=== PATIENT | male | born 1940 | race Caucasian/White ===

== ENCOUNTER 2018-02-17 16:58 | Inpatient (IN) | payer MEDICARE, MEDICAID ==
[~2018-02-17] VITALS: Ht 205.7 cm; Wt 129.3 kg
[2018-02-18] VITALS: BP 140/76
[2018-02-18] MEDS ORDERED: Albuterol/Ipratropium 3ml neb HHN PRN (00:15)
[2018-02-18] MEDS: HYDROcodone/Acetamin 10/325 tab ORAL PRN ×4 (00:53→23:55)
[2018-02-18] MEDS ORDERED: LORazepam 0.5mg tab ORAL PRN (01:45)
[2018-02-18] MEDS: Solu-MEDROL 40mg Inj IVP SCH ×3 (02:24→21:32)
[2018-02-18 04:00] VITALS: BP 143/76
[2018-02-18] MEDS: MS Contin 15mg tab ORAL PRN ×3 (04:38→21:33)
[2018-02-18 07:16] LABS: ALANINE AMINOTRANSFERASE 17 U/L (12-78); ALBUMIN 3.4 G/DL (3.4-5.0); ALBUMIN/GLOBULIN RATIO 0.7 (1.0-2.7); ALKALINE PHOSPHATASE 123 U/L (46-116); ANION GAP 5 mmol/L (5-15); ASPARTATE AMINO TRANSFERASE 13 U/L (15-37); BILIRUBIN,TOTAL 0.3 MG/DL (0.2-1.0); BLOOD UREA NITROGEN 16 mg/dL (7-18); CALCIUM 9.5 MG/DL (8.5-10.1); CARBON DIOXIDE 30 MMOL/L (21-32); CHLORIDE 100 MMOL/L (98-107); CREATININE 0.9 MG/DL (0.55-1.30); SODIUM 135 MMOL/L (136-145)
[2018-02-18 07:17] LABS: BASOPHILS % (AUTO) 0.6 % (0.0-2.0); EOSINOPHILS % (AUTO) 0.4 % (0.0-3.0); HEMATOCRIT 49.1 % (42.0-52.0); HEMOGLOBIN 16.5 G/DL (14.2-18.0); LYMPHOCYTES % (AUTO) 15.8 % (20.0-45.0); MEAN CORPUSCULAR VOLUME 88 FL (80-99); MONOCYTES % (AUTO) 1.9 % (1.0-10.0); NEUTROPHILS % (AUTO) 81.3 % (45.0-75.0); PLATELET COUNT 364 K/UL (150-450); RED BLOOD COUNT 5.59 M/UL (4.70-6.10); RED CELL DISTRIBUTION WIDTH 14.9 % (11.6-14.8); WHITE BLOOD COUNT 8.9 K/UL (4.8-10.8)
[2018-02-18 07:39] LABS: INR 1.1 (0.9-1.1)
[2018-02-18 08:00] VITALS: BP 133/83
[2018-02-18] MEDS: Aspirin Baby 81mg ORAL SCH (08:47)
[2018-02-18] MEDS: NovoLOG Insulin Flexpen SUBQ SCH ×2 (09:00→21:37)
[2018-02-18] MEDS ORDERED: MS Contin 15mg tab ORAL PRN (09:00)
[2018-02-18 12:00] VITALS: BP 136/82
[2018-02-18] MEDS: Hydrocortisone 1% Cr 15gm TOPIC PRN (13:56)
[2018-02-18 16:00] VITALS: BP 142/85
[2018-02-18] MEDS ORDERED: Warfarin Sodium 10mg ORAL ONE (17:00)
[2018-02-18] MEDS ORDERED: Warfarin Sodium 2mg ORAL SCH (17:00)
[2018-02-18] MEDS: Vancomycin 1.5 GM/D5W 250ML IVPB SCH (17:23)
[2018-02-18] MEDS: Bactrim-DS 1 tab ORAL SCH (18:30)
--- NOTE | 2018-02-18 19:15 | History and Physical Report ---
DATE OF ADMISSION: 02/17/2018 HISTORY OF PRESENT ILLNESS: The patient is a 78-year-old white male who came to the emergency room following acute COPD, chronic respiratory insufficiency, intractable pain, and bilateral leg ulcer. The patient is currently awake, complaining of pain on both legs and . The patient used to be on OxyContin 90 mg three times a day, but has cut down the dose, changed to morphine. He has been taking high dose of morphine, but still complaining of pain mild to moderate, short of breath. He has no fever. No chills. No chest pain or palpitation. PAST MEDICAL HISTORY: Significant for peripheral vascular disease, COPD, obesity, neuropathy, and leg ulcer. ALLERGIES: NKA. MEDICATIONS: See the list. PHYSICAL EXAMINATION: GENERAL: This is an elderly white male, currently in bed, feels comfortable and feeling a lot better. VITAL SIGNS: Blood pressure is 160/ . SKIN: Good skin turgor. HEENT: NAD. CHEST: Bilateral scattered wheezing. CARDIOVASCULAR: Regular rhythm. No gallop. No murmur. ABDOMEN: Soft. Positive bowel sounds. EXTREMITIES: Nonhealing ulcer on both legs and peripheral vascular disease and some skin changes. GENITOURINARY: Deferred. NEUROLOGIC: Generalized weakness. ASSESSMENT: 1. Acute COPD. 2. Bilateral leg ulcer. 3. Chronic pain, which is progressively worse. 4. Peripheral vascular disease. 5. Generalized weakness. PLAN: 1. We will consider pain management and consider wound care. 2. Continue IV antibiotics. 3. Continue bronchodilator treatments. 4. Continue pain medications until pain management evaluation. Marlon Holland M.D. DR: Annetta JOB#: [id number] CC:
[2018-02-18 20:00] VITALS: BP 123/66
[2018-02-18] MEDS: Sennosides 8.6mg ORAL SCH (21:32)
[2018-02-19] VITALS (7 sets, daily range): BP systolic 116–144; BP diastolic 50–86
[2018-02-19] MEDS: Vancomycin 1.5 GM/D5W 250ML IVPB SCH ×2 (05:37→17:26)
[2018-02-19] MEDS: MS Contin 15mg tab ORAL PRN ×3 (06:23→22:33)
[2018-02-19] MEDS: HYDROcodone/Acetamin 10/325 tab ORAL PRN ×2 (08:31→17:25)
[2018-02-19] MEDS: Bactrim-DS 1 tab ORAL SCH (08:31)
[2018-02-19] MEDS: Solu-MEDROL 40mg Inj IVP SCH ×2 (08:31→21:01)
[2018-02-19] MEDS: Aspirin Baby 81mg ORAL SCH (08:31)
[2018-02-19] MEDS: NovoLOG Insulin Flexpen SUBQ SCH ×2 (08:32→21:00)
--- NOTE | 2018-02-19 11:34 | Consultation ---
History of Present Illness General Date patient seen: Feb 19, 2018 Present Illness Allergies: Coded Allergies: No Known Allergies (Unverified , 02/17/18) Patient History Healthcare decision maker N Resuscitation status Full Code Advanced Directive on File Physical Exam Last 24 Hour Vital Signs Date Time Temp Pulse Resp B/P (MAP) Pulse Ox O2 Delivery O2 Flow Rate FiO2 02/19/18 08:00 97.7 92 20 116/50 95 Room Air 97.7 02/19/18 06:23 97.7 02/19/18 04:00 97.7 88 20 120/68 95 Room Air 97.7 02/19/18 00:00 97.3 92 20 132/74 96 Room Air 97.3 02/18/18 20:00 97.8 81 20 123/66 94 Room Air 97.8 02/18/18 19:30 80 18 Room Air 21 02/18/18 16:00 98.5 93 20 142/85 93 Room Air 98.5 02/18/18 12:00 99.1 95 20 136/82 93 Room Air 99.1 Intake and Output 02/18/18 02/19/18 19:00 07:00 Intake Total 1125 ml 685 ml Output Total 1100 ml 2000 ml Balance 25 ml -1315 ml Intake Oral 1000 ml 560 ml IV Total 125 ml 125 ml Output Urine Total 2000 ml Stool Total 1100 ml Height (Feet): 6 Height (Inches): 9.00 Weight (Pounds): 285 Medications Current Medications Medications (Trade) Dose Ordered Sig/Eulogio Route PRN Reason Start Time Stop Time Status Last Admin Dose Admin Acetaminophen/ Hydrocodone Bitart ([place] 10/325) 1 tab EVERY 6 HOURS PRN ORAL For Pain 02/18/18 00:15 02/25/18 00:14 02/19/18 08:31 Albuterol/ Ipratropium (Albuterol/ Ipratropium) 3 ml EVERY 6 HOURS PRN HHN Shortness of Breath 02/18/18 00:15 02/23/18 00:14 Aspirin (ASA) 81 mg DAILY ORAL 02/18/18 09:00 03/20/18 08:59 02/19/18 08:31 Bisacodyl (Dulcolax) 10 mg DAILYPRN PRN RECTAL Constipation 02/18/18 00:15 03/20/18 00:14 Dextrose (Dextrose 50%) 25 ml STAT PRN IV Hypoglycemia 02/18/18 01:45 03/20/18 01:44 Dextrose (Dextrose 50%) 50 ml STAT PRN IV Hypoglycemia 02/18/18 01:45 03/20/18 01:44 Hydrochlorothiazide (Hydrodiuril) 25 mg DAILY ORAL 02/18/18 09:00 03/20/18 08:59 02/19/18 08:31 Hydrocortisone (Hydrocortisone) 1 applic Q6H PRN TOPIC Itching 02/18/18 10:45 03/20/18 10:44 02/18/18 13:56 Insulin Aspart (NovoLOG) Q12HR SUBQ 02/18/18 09:00 03/20/18 08:59 02/18/18 21:37 Lorazepam (Ativan) 0.5 mg Q6H PRN ORAL For Anxiety 02/18/18 01:45 02/25/18 01:44 Methylprednisolone Sodium Succinate (Solu-MEDROL) 40 mg EVERY 12 HOURS IVP 02/18/18 00:27 03/20/18 00:26 02/19/18 08:31 Morphine Sulfate (MS Contin) 60 mg Q8H PRN ORAL [place] 02/18/18 04:30 02/25/18 04:29 02/19/18 06:23 Non-Formulary Medication (Non-Formulary Med) 1 ea BEDTIME ORAL 02/18/18 21:00 03/20/18 20:59 UNV Non-Formulary Medication (Non-Formulary Med) 1 ea BID TOPIC 02/19/18 09:00 03/21/18 08:59 UNV Ondansetron HCl (Zofran ODT) 4 mg Q6H PRN ORAL Nausea & Vomiting 02/18/18 01:45 03/20/18 01:44 02/19/18 01:45 Pantoprazole (Protonix) 40 mg DAILY ORAL 02/18/18 09:00 03/20/18 08:59 02/19/18 08:31 Sennosides (Senokot) 1 tab BEDTIME ORAL 02/18/18 21:00 03/20/18 20:59 02/18/18 21:32 Trimethoprim/ Sulfamethoxazole (Bactrim-DS) 1 tab TWICE A DAY ORAL 02/18/18 18:00 02/25/18 17:59 02/19/18 08:31 Vancomycin HCl (Vanco rx to dose) 1 ea DAILY PRN MISC Per rx protocol 02/18/18 15:00 03/20/18 14:59 Vancomycin HCl/ Dextrose 250 ml @ 125 mls/hr Q12H IVPB 02/18/18 17:00 02/23/18 16:59 02/19/18 05:37 Warfarin Sodium (Coumadin) 10 mg DAILY@17 ORAL 02/18/18 17:00 02/20/18 17:01 UNV Assessment/Plan Assessment/Plan (1) Lumbar DDD (2) Lumbar Spondylosis (3) H/o Lumbar surgery (4) B/L LE Pain (5) B/L LE Cellulitis (6) Narcotic dependency (7) COPD seen dictated. Gaudencio Hoang Feb 19, 2018 11:34
--- NOTE | 2018-02-19 13:15 | Infectious Diseases Prog Note ---
Assessment/Plan Problems: (1) Bilateral cellulitis of lower leg Assessment & Plan: will continue vancomycin and switch bactrim to cefepime empiric coverage to cover for possible pseudomonas , check ESR (2) Wound, open, leg Assessment & Plan: continue local wound care as per hospital protocol , keep legs elevated all the time in bed (3) COPD exacerbation Assessment & Plan: will start cefepime empiric coverage , continue bronchodilators , taper steroids (4) PVD (peripheral vascular disease) Assessment & Plan: will need arterial Doppler , follow up with vascular Subjective Allergies: Coded Allergies: No Known Allergies (Unverified , 02/17/18) Objective Vital Signs Last 24 Hour Vital Signs Date Time Temp Pulse Resp B/P (MAP) Pulse Ox O2 Delivery O2 Flow Rate FiO2 02/19/18 08:00 97.7 92 20 116/50 95 Room Air 97.7 02/19/18 06:23 97.7 02/19/18 04:00 97.7 88 20 120/68 95 Room Air 97.7 02/19/18 00:00 97.3 92 20 132/74 96 Room Air 97.3 02/18/18 20:00 97.8 81 20 123/66 94 Room Air 97.8 02/18/18 19:30 80 18 Room Air 21 02/18/18 16:00 98.5 93 20 142/85 93 Room Air 98.5 Height (Feet): 6 Height (Inches): 9.00 Weight (Pounds): 285 Current Medications Medications (Trade) Dose Ordered Sig/Eulogio Route PRN Reason Start Time Stop Time Status Last Admin Dose Admin Acetaminophen/ Hydrocodone Bitart ([place] 10/325) 1 tab EVERY 6 HOURS PRN ORAL For Pain 02/18/18 00:15 02/25/18 00:14 02/19/18 08:31 Albuterol/ Ipratropium (Albuterol/ Ipratropium) 3 ml EVERY 6 HOURS PRN HHN Shortness of Breath 02/18/18 00:15 02/23/18 00:14 Aspirin (ASA) 81 mg DAILY ORAL 02/18/18 09:00 03/20/18 08:59 02/19/18 08:31 Bisacodyl (Dulcolax) 10 mg DAILYPRN PRN RECTAL Constipation 02/18/18 00:15 03/20/18 00:14 Dextrose (Dextrose 50%) 25 ml STAT PRN IV Hypoglycemia 02/18/18 01:45 03/20/18 01:44 Dextrose (Dextrose 50%) 50 ml STAT PRN IV Hypoglycemia 02/18/18 01:45 03/20/18 01:44 Hydrochlorothiazide (Hydrodiuril) 25 mg DAILY ORAL 02/18/18 09:00 03/20/18 08:59 02/19/18 08:31 Hydrocortisone (Hydrocortisone) 1 applic Q6H PRN TOPIC Itching 02/18/18 10:45 03/20/18 10:44 02/18/18 13:56 Insulin Aspart (NovoLOG) Q12HR SUBQ 02/18/18 09:00 03/20/18 08:59 02/18/18 21:37 Lorazepam (Ativan) 0.5 mg Q6H PRN ORAL For Anxiety 02/18/18 01:45 02/25/18 01:44 Methylprednisolone Sodium Succinate (Solu-MEDROL) 40 mg EVERY 12 HOURS IVP 02/18/18 00:27 03/20/18 00:26 02/19/18 08:31 Morphine Sulfate (MS Contin) 60 mg Q8H PRN ORAL [place] PA[place] 02/18/18 04:30 02/25/18 04:29 02/19/18 06:23 Non-Formulary Medication (Non-Formulary Med) 1 ea BEDTIME ORAL 02/18/18 21:00 03/20/18 20:59 UNV Non-Formulary Medication (Non-Formulary Med) 1 ea BID TOPIC 02/19/18 09:00 03/21/18 08:59 UNV Ondansetron HCl (Zofran ODT) 4 mg Q6H PRN ORAL Nausea & Vomiting 02/18/18 01:45 03/20/18 01:44 02/19/18 01:45 Pantoprazole (Protonix) 40 mg DAILY ORAL 02/18/18 09:00 03/20/18 08:59 02/19/18 08:31 Sennosides (Senokot) 1 tab BEDTIME ORAL 02/18/18 21:00 03/20/18 20:59 02/18/18 21:32 Trimethoprim/ Sulfamethoxazole (Bactrim-DS) 1 tab TWICE A DAY ORAL 02/18/18 18:00 02/25/18 17:59 02/19/18 08:31 Vancomycin HCl (Vanco rx to dose) 1 ea DAILY PRN MISC Per rx protocol 02/18/18 15:00 03/20/18 14:59 Vancomycin HCl/ Dextrose 250 ml @ 125 mls/hr Q12H IVPB 02/18/18 17:00 02/23/18 16:59 02/19/18 05:37 Warfarin Sodium (Coumadin) 10 mg DAILY@17 ORAL 02/18/18 17:00 02/20/18 17:01 Fabiola Vazquez M.D. Feb 19, 2018 13:15
[2018-02-19] MEDS ORDERED: Tubing IV Secondary IV ONE (13:36)
[2018-02-19] MEDS ORDERED: NS 275ml ONE (13:36)
[2018-02-19 16:18] LABS: INR 1.2 (0.9-1.1)
[2018-02-19] MEDS ORDERED: Warfarin Sodium 10mg ORAL ONE (18:30)
--- NOTE | 2018-02-19 18:45 | Consultation ---
DATE OF CONSULTATION: 02/19/2018 PAIN MANAGEMENT CONSULTATION REFERRING PHYSICIAN: Marlon Holland M.D. CONSULTING PHYSICIAN: Farideh Mccallum M.D. PHYSICIAN TEAM LEADER SURGERY: Rigoberto Stewart CHIEF COMPLAINT: Low back pain and bilateral lower extremity pain. HISTORY OF PRESENT ILLNESS: This is a 78-year-old male, who is being seen on the medical/surgical floor of [facility] for initial comprehensive pain management consultation. The patient was admitted under the care of Dr. Holland due to COPD exacerbation and bilateral lower extremity pain caused by cellulitis. He has a history of lumbar pain for many years, last being lumbar fusion in 2000. He describes the pain as a constant, chronic pain, rating at 8/10. Describing the pain as sharp burning pain and worse with movement and nothing has been helping to relieve the pain except the morphine extended release and [place], which he takes as an outpatient in the nursing facility. He takes morphine extended release 60 mg three times a day with [place] 10/325 mg one tablet every six hours as needed for pain, which has been started here in the hospital. At this time, the patient is comfortable and has no other issues at this time. We were consulted so the patient will have adequate pain control while here in the hospital. At this time, I discussed with the patient in detail about narcotic use, dependency, and intolerance and the side effects that occur with opioid medications at high dosages, which he is on. He seems to understand and discuss treatment option of Suboxone, which can be started as an outpatient, which he will discuss with his pain specialist, which he has been seeing as an outpatient. PAST MEDICAL HISTORY: COPD and low back pain. PAST SURGICAL HISTORY: Lumbar fusion and right lung resection. MEDICATIONS: Morphine extended release, [place], Protonix, hydrochlorothiazide, Ativan, Zofran, Dulcolax, and albuterol. ALLERGIES: No known drug allergies. SOCIAL HISTORY: He is a smoker of tobacco. Denies alcohol abuse or IV drug abuse. REVIEW OF SYSTEMS: Denies rash, fever, chills, sweating, dizziness, drowsiness, blurred vision, sore throat, or change in weight. No nausea, vomiting, diarrhea, or blood in the stool or urine. No bowel or bladder incontinence. No dysuria. He is complaining of low back pain. PHYSICAL EXAMINATION: GENERAL: Alert, awake, and oriented x3. VITAL SIGNS: Blood pressure is 116/50, heart rate is 92, oxygen saturation is 95%, respiratory rate is 20, and temperature is 97.7 degrees Fahrenheit. HEENT: PERRLA. NECK: Range of motion is full in all directions. No tenderness to paracervical muscles. LUNGS: Decreased breath sounds bilaterally. HEART: S1 and S2 regular. ABDOMEN: Benign. BACK: Range of motion is decreased in flexion and extension with well-healed surgical scar noted on the lumbar spine. EXTREMITIES: Upper extremity range of motion is full in all directions. No cyanosis. No clubbing. No edema. Sensory is intact. Reflexes are not obtainable. No adenopathy. Lower extremity range of motion is decreased due to the patient's current condition. Bandages were applied to bilateral lower extremities. Cyanosis and discoloration noted to bilateral feet. Sensory is reduced. Reflexes are not obtainable. No adenopathy. ASSESSMENT AND PLAN: A 78-year-old male with lumbar degenerative disk disease, lumbar spondylosis, history of lumbar surgery, bilateral lower extremity pain, bilateral lower extremity cellulitis, narcotic dependency, and chronic obstructive pulmonary disease. The patient will be continued on morphine extended release and [place]. The patient was discussed with Dr. Mccallum and Dr. Mccallum concurred. We will follow the patient. Thank you very much for the courtesy of this consultation. Farideh Mccallum M.D. SCARLETT Stewart DR: Emmy JOB#: [id number] CC: BLANQUITA
[2018-02-19] MEDS: Sennosides 8.6mg ORAL SCH (21:01)
[2018-02-19] MEDS: Cefepime HCl 2 GM in D5W 110 ML IVPB SCH (21:02)
--- NOTE | 2018-02-19 22:30 | Consultation ---
DATE OF CONSULTATION: 02/19/2018 INFECTIOUS DISEASES CONSULTATION CONSULTING PHYSICIAN: Fabiola Vora M.D. REQUESTING PHYSICIAN: Marlon Holland M.D. REASON FOR CONSULTATION: Bilateral leg cellulitis with wounds and COPD exacerbation, recommendation for antibiotics therapy in a chronic smoker patient. HISTORY OF PRESENT ILLNESS: The patient is a 78-year-old male with past medical history of COPD, peripheral vascular disease, obesity, neuropathy, leg ulcers, and chronic tobacco use, presented to [facility] with acute exacerbation of his COPD with cough, productive and shortness of breath. He also complained of pain on both legs with ulceration. The patient has been using large dose of narcotics at home with no significant relief or improvement. He felt short of breath, but no fever or chills. So, he was sent to the emergency room at [place] for evaluation. The patient was started on vancomycin and Bactrim by the admitting team and Infectious Disease consultation was requested for his leg cellulitis, wounds, and COPD exacerbation treatment. PAST MEDICAL HISTORY: Significant for peripheral vascular disease, COPD, obesity, neuropathy, leg ulcer, and tobacco abuse. PAST SURGICAL HISTORY: Negative. MEDICATIONS: He is currently on vancomycin and Bactrim. For the rest of his medications, please refer to MAR. ALLERGIES: He has no known drug allergy. SOCIAL HISTORY: The patient lives at home. No recent drugs or alcohol, but he is a chronic smoker, used to smoke five packets per day for years, now he smokes two packets per day. REVIEW OF SYSTEMS: A 14-point of systems reviewed were all negative apart from the one I mentioned above in my History and Physical. PHYSICAL EXAMINATION: VITAL SIGNS: Temperature 97.7 degrees, pulse 92, respirations 20, blood pressure 116/50, and saturation 95% on room air. GENERAL: Elderly male, overweight, lying in bed, awake, alert, not in distress. HEENT: Normocephalic and atraumatic. Pupils are reactive to light. Equally moist oral mucosa. No exudate. NECK: Supple. No lymphadenopathy. CARDIOVASCULAR: Regular rate and rhythm. No murmur or gallop. LUNGS: He had wheezing and diminished breathing sounds at the bases. ABDOMEN: Soft, obese, nontender, and nondistended. Normal bowel sounds. No hepatosplenomegaly. No ascites. EXTREMITIES: He had extensive cellulitis and redness on both legs with multiple wounds on both lower extremities. He had also severe onychomycosis on both feet. LABORATORY AND DIAGNOSTIC DATA: Labs showed white count of 8.9, hemoglobin of 16.5, and platelet count of 364,000. BUN of 16 and creatinine of 0.9. AST of 13 and ALT of 17. Imaging, none done. ASSESSMENT AND RECOMMENDATION: 1. Bilateral lower extremity cellulitis. We will continue vancomycin and start cefepime empiric coverage to cover for possible Pseudomonas due to the chronicity of his wounds. The patient to have wound care continuously while he is in the hospital. Keep legs elevated all the time. 2. Bilateral leg wounds. The patient will be covered with vancomycin and cefepime to cover for Pseudomonas also. We will stop Bactrim. Continue dressing change and wound care management as per the hospital protocol. 3. Peripheral vascular disease. We will obtain arterial Doppler and the patient need to follow up with Vascular Surgery. 4. Acute chronic obstructive pulmonary disease exacerbation. Continue bronchodilator as needed and antibiotics. We will start cefepime empiric coverage for possible Pseudomonas. We will obtain chest x-ray. Thank you for the consult. Infectious Disease will continue to follow. Fabiola Vora M.D. DR: Maverick JOB#: [id number] CC:
[2018-02-19] MEDS: Hydrocortisone 1% Cr 15gm TOPIC PRN (23:12)
--- NOTE | 2018-02-20 | Progress Note ---
DATE: 02/19/2018 SUBJECTIVE: This is an elderly male, currently sitting in the bed. Pain is controlled. OBJECTIVE: VITAL SIGNS: Blood pressure is 130/90, pulse 74, and respirations 18. SKIN: Good skin turgor. HEENT: NAD. CHEST: Bilaterally clear. CARDIOVASCULAR: Regular rhythm. No gallop. No murmur. ABDOMEN: Soft. EXTREMITIES: CCE. NEUROLOGICAL: Generalized weakness. ASSESSMENT: 1. Intractable pain. 2. Chronic obstructive pulmonary disease. 3. Hypertension. 4. Peripheral vascular disease. 5. Bilateral leg ulcer. PLAN: 1. We will currently continue IV antibiotics. 2. Continue bronchodilator treatment. 3. Continue pain medicine. The patient is on morphine and breakthrough. The patient is on pain consult. Marlon Holland M.D. DR: Anil JOB#: [id number] CC:
[2018-02-20] MEDS: HYDROcodone/Acetamin 10/325 tab ORAL PRN ×4 (01:07→22:42)
[2018-02-20 04:00] VITALS: BP 132/72
[2018-02-20 05:16] LABS: INR 1.1 (0.9-1.1)
[2018-02-20] MEDS: Vancomycin 1.5 GM/D5W 250ML IVPB SCH ×2 (05:54→17:52)
[2018-02-20] MEDS: MS Contin 15mg tab ORAL PRN (06:40)
[2018-02-20 08:00] VITALS: BP 147/81
--- NOTE | 2018-02-20 08:01 | General Progress Note ---
Assessment/Plan Assessment/Plan (1) Lumbar DDD (2) Lumbar Spondylosis (3) H/o Lumbar surgery (4) B/L LE Pain (5) B/L LE Cellulitis (6) Narcotic dependency (7) COPD Patient to be continued on Morphine ER and [place] D/w Dr. Mccallum and he concurred. Subjective Date patient seen: Feb 20, 2018 Time patient seen: 07:00 - am Allergies: Coded Allergies: No Known Allergies (Unverified , 02/17/18) Subjective REVIEW OF SYSTEMS: Denies rash, fever, chills, sweating, dizziness, drowsiness, blurred vision, sore throat, or change in weight. No nausea, vomiting, diarrhea, or blood in the stool or urine. No bowel or bladder incontinence. No dysuria. He is complaining of low back pain. SUBJECTIVE: Patient is in bed and reports that the pain is at a moderate level tolerated on the Morphine ER and [place]. He has no new complaints. Objective Last 24 Hour Vital Signs Date Time Temp Pulse Resp B/P (MAP) Pulse Ox O2 Delivery O2 Flow Rate FiO2 02/20/18 04:00 98.3 91 20 132/72 97 Room Air 98.3 02/19/18 23:51 97.0 85 20 144/86 98 Room Air 97.0 02/19/18 20:36 78 18 Room Air 21 02/19/18 20:00 97.5 81 20 128/68 97 Room Air 97.5 02/19/18 16:00 97.3 79 20 116/61 93 Room Air 97.3 02/19/18 12:00 97.3 100 20 135/77 93 Room Air 97.3 Intake and Output 02/19/18 02/20/18 19:00 07:00 Intake Total 300 ml 2235 ml Output Total 2450 ml Balance 300 ml -215 ml Intake Oral 300 ml 2000 ml IV Total 235 ml Output Urine Total 2450 ml # Voids 5 5 Laboratory Tests 02/19/18 14:26: Erythrocyte Sedimentation Rate 9 02/19/18 15:27: Prothrombin Time 12.9H, Prothromb Time International Ratio 1.2H 02/20/18 04:40: Prothrombin Time 11.7H, Prothromb Time International Ratio 1.1, Vancomycin Level Trough 13.1H Height (Feet): 6 Height (Inches): 9.00 Weight (Pounds): 285 Objective GENERAL: Alert, awake, and oriented x3. LUNGS: Decreased breath sounds bilaterally. HEART: S1 and S2 regular. ABDOMEN: Benign. EXTREMITIES: Lower extremity range of motion is decreased due to the patient's current condition. Bandages were applied to bilateral lower extremities. Cyanosis and discoloration noted to bilateral feet. NEURO: No changes. Gaudencio Hoang Feb 20, 2018 08:00
[2018-02-20] MEDS ORDERED: Naloxone 0.4mg/ml Inj IV PRN (08:15)
[2018-02-20] MEDS: Cefepime HCl 2 GM in D5W 110 ML IVPB SCH ×2 (08:33→20:14)
[2018-02-20] MEDS: Solu-MEDROL 40mg Inj IVP SCH ×2 (08:33→20:14)
[2018-02-20] MEDS: Aspirin Baby 81mg ORAL SCH (08:33)
[2018-02-20] MEDS: NovoLOG Insulin Flexpen SUBQ SCH ×2 (08:37→20:15)
[2018-02-20 12:00] VITALS: BP 147/96
[2018-02-20] MEDS: MS Contin 15mg tab ORAL SCH ×2 (12:17→20:14)
--- NOTE | 2018-02-20 12:47 | Diagnostic Imaging Report ---
Indication: Cough Comparison: None A single view chest radiograph was obtained. Findings: Interstitial opacities are present bilaterally, acuity indeterminate. Heart size is normal. Exam limited by rotation. IMPRESSION: Interstitial prominence. Consider edema versus pneumonitis. Correlate clinically.
--- NOTE | 2018-02-20 14:03 | Consultation ---
Consult Note Assessment/Plan A/ 1) Superficial non pressure ulcers bilateral legs 2) Cellulitis -resolving 3) Venous stasis/insufficiency 4) DM 5) COPD P/ 1) Compression dressings ordered 2) Cont abx per ID 3) No weight bearing restrictions 4) Elevate legs when sitting Thank you Julián Resendiz DPM Feb 20, 2018 14:03
--- NOTE | 2018-02-20 14:30 | Infectious Diseases Prog Note ---
Assessment/Plan Problems: (1) Bilateral cellulitis of lower leg Assessment & Plan: continue vancomycin and cefepime empiric coverage to cover for possible pseudomonas too , pending cultures, keep legs elevated all the time (2) Wound, open, leg Assessment & Plan: continue local wound care as per hospital protocol , keep legs elevated all the time in bed (3) COPD exacerbation Assessment & Plan: continue cefepime empiric coverage , continue bronchodilators (4) PVD (peripheral vascular disease) Assessment & Plan: will need arterial Doppler , follow up with vascular Subjective Constitutional: Reports: no symptoms HEENT: Reports: no symptoms Respiratory: Reports: no symptoms Breasts: Reports: no symptoms Cardiovascular: Reports: no symptoms Gastrointestinal/Abdominal: Reports: no symptoms Genitourinary: Reports: no symptoms Neurologic: Reports: no symptoms Psychiatric: Reports: no symptoms Skin: Reports: ulcer, other - redness and swelling Endocrine: Reports: no symptoms Hematologic: Reports: no symptoms Musculoskeletal: Reports: pain, swelling, stiffness Allergies: Coded Allergies: No Known Allergies (Unverified , 02/17/18) Objective Vital Signs Last 24 Hour Vital Signs Date Time Temp Pulse Resp B/P (MAP) Pulse Ox O2 Delivery O2 Flow Rate FiO2 02/20/18 12:00 98.5 84 20 147/96 97 Room Air 98.5 02/20/18 08:17 83 18 Room Air 21 02/20/18 08:00 98.2 86 20 147/81 97 98.2 02/20/18 04:00 98.3 91 20 132/72 97 Room Air 98.3 02/19/18 23:51 97.0 85 20 144/86 98 Room Air 97.0 02/19/18 20:36 78 18 Room Air 21 02/19/18 20:00 97.5 81 20 128/68 97 Room Air 97.5 02/19/18 16:00 97.3 79 20 116/61 93 Room Air 97.3 Height (Feet): 6 Height (Inches): 9.00 Weight (Pounds): 285 General Appearance: WD/WN, no acute distress HEENT: normocephalic, atraumatic, anicteric, mucous membranes moist, PERRL Respiratory/Chest: chest wall non-tender, no respiratory distress, no accessory muscle use, decreased breath sounds, expiratory wheezing Cardiovascular: normal peripheral pulses, normal rate, regular rhythm, no gallop/murmur, no JVD Abdomen: normal bowel sounds, soft, non tender, no organomegaly, non distended , no mass, no scars Extremities: no cyanosis, no clubbing, other - edema with stasis dermatitis, multiple skin wounds Skin: no rash, no lesions, no ulcers Neurologic/Psychiatric: alert, oriented x 3, responsive Microbiology Date/Time Source Procedure Growth Status 02/17/18 23:00 Nasal Nares MRSA Culture - Final NO METHICILLIN RESISTANT STAPH AUREUS... Complete 02/17/18 23:30 Rectum VRE Culture - Final NO VANCOMYCIN RESISTANT ENTEROCOCCUS ... Complete 02/17/18 23:30 Rectum - Final NO CARBAPENEM-RESISTANT ENTEROBACTERI... Complete Laboratory Tests Test 02/19/18 15:27 02/20/18 04:40 Prothrombin Time 12.9 SEC (9.30-11.50) H 11.7 SEC (9.30-11.50) H Prothromb Time International Ratio 1.2 (0.9-1.1) H 1.1 (0.9-1.1) Vancomycin Level Trough 13.1 ug/mL (5.0-12.0) H Current Medications Medications (Trade) Dose Ordered Sig/Eulogio Route PRN Reason Start Time Stop Time Status Last Admin Dose Admin Acetaminophen/ Hydrocodone Bitart ([place] 10/325) 1 tab EVERY 6 HOURS PRN ORAL For Pain 02/18/18 00:15 02/25/18 00:14 02/20/18 08:33 Albuterol/ Ipratropium (Albuterol/ Ipratropium) 3 ml EVERY 6 HOURS PRN HHN Shortness of Breath 02/18/18 00:15 02/23/18 00:14 Aspirin (ASA) 81 mg DAILY ORAL 02/18/18 09:00 03/20/18 08:59 02/20/18 08:33 Bisacodyl (Dulcolax) 10 mg DAILYPRN PRN RECTAL Constipation 02/18/18 00:15 03/20/18 00:14 Cefepime HCl 2 gm/ Dextrose 110 ml @ 220 mls/hr EVERY 12 HOURS IVPB 02/19/18 21:00 02/26/18 20:59 02/20/18 08:33 Dextrose (Dextrose 50%) 25 ml STAT PRN IV Hypoglycemia 02/18/18 01:45 03/20/18 01:44 Dextrose (Dextrose 50%) 50 ml STAT PRN IV Hypoglycemia 02/18/18 01:45 03/20/18 01:44 Hydrochlorothiazide (Hydrodiuril) 25 mg DAILY ORAL 02/18/18 09:00 03/20/18 08:59 02/20/18 08:34 Hydrocortisone (Hydrocortisone) 1 applic Q6H PRN TOPIC Itching 02/18/18 10:45 03/20/18 10:44 02/19/18 23:12 Insulin Aspart (NovoLOG) Q12HR SUBQ 02/18/18 09:00 03/20/18 08:59 02/20/18 08:37 Lorazepam (Ativan) 0.5 mg Q6H PRN ORAL For Anxiety 02/18/18 01:45 02/25/18 01:44 Methylprednisolone Sodium Succinate (Solu-MEDROL) 40 mg EVERY 12 HOURS IVP 02/18/18 00:27 03/20/18 00:26 02/20/18 08:33 Morphine Sulfate (MS Contin) 60 mg Q8H ORAL 02/20/18 12:30 02/25/18 04:29 02/20/18 12:17 Naloxone HCl (Narcan) 0.4 mg Q2M PRN IV respiratory distress 02/20/18 08:15 03/22/18 08:14 Non-Formulary Medication (Non-Formulary Med) 1 ea BID TOPIC 02/19/18 09:00 03/21/18 08:59 UNV Ondansetron HCl (Zofran ODT) 4 mg Q6H PRN ORAL Nausea & Vomiting 02/18/18 01:45 03/20/18 01:44 02/19/18 01:45 Pantoprazole (Protonix) 40 mg DAILY ORAL 02/18/18 09:00 03/20/18 08:59 02/20/18 08:33 Sennosides (Senokot) 1 tab BEDTIME ORAL 02/18/18 21:00 03/20/18 20:59 02/19/18 21:01 Vancomycin HCl (Vanco rx to dose) 1 ea DAILY PRN MISC Per rx protocol 02/18/18 15:00 03/20/18 14:59 Vancomycin HCl/ Dextrose 250 ml @ 125 mls/hr Q12H IVPB 02/18/18 17:00 02/23/18 16:59 02/20/18 05:54 Vitamin A/Vitamin D (A & D Oint) 1 applic EVERY OTHER DAY TOPIC 02/20/18 15:30 03/22/18 15:29 Warfarin Sodium (Coumadin per pharmacy) 1 ea DAILY PRN MISC . 02/19/18 17:15 03/21/18 17:14 Fabiola Vora M.D. Feb 20, 2018 14:30
[2018-02-20] MEDS ORDERED: Vitamin A&D Oint 2oz Tube TOPIC SCH (15:30)
[2018-02-20 16:00] VITALS: BP 144/66
--- NOTE | 2018-02-20 16:30 | Consultation ---
DATE OF CONSULTATION: 02/20/2018 CONSULTING PHYSICIAN: Julián Varghese D.P.M. REQUESTING PHYSICIAN: Dr. Marlon Holland. REASON FOR CONSULTATION: Bilateral leg cellulitis with bilateral leg wounds in the presence of diabetes mellitus. HISTORY OF PRESENT ILLNESS: The patient is a 78-year-old male, who was admitted to [facility] on 02/17/2018 for complications of COPD as well as bilateral leg cellulitis. The patient states that he has been dealing with his leg ulcerations on and off for quite some time, was sent to rehabilitation center where he was cared for and then upon discharge was referred to home health agency, which had difficulties with appointments. Denies any pain fevers, chills, nausea, or vomiting, but does state that as soon as he puts his legs down he does notice that his feet swell and legs become little discolored. PAST MEDICAL HISTORY: Significant for peripheral vascular disease, COPD, obesity, neuropathy, diabetes mellitus, leg ulcers and tobacco use. ALLERGIES: He has no known drug allergies. MEDICATIONS: Per MAR and include morphine, cefepime, warfarin, vancomycin, aspirin and [place]. FAMILY HISTORY: Noncontributory. SOCIAL HISTORY: Noncontributory. REVIEW OF SYSTEMS: HEENT: The patient denies any headaches, blurred vision, or ringing in the ears. CARDIORESPIRATORY: The patient denies any chest pain or shortness of breath. GENITOURINARY: The patient denies any urgency, frequency, burning upon urination, or hematuria. GASTROINTESTINAL: The patient denies any constipation, diarrhea or blood in the stool. PHYSICAL EXAMINATION: VITAL SIGNS: Temperature is 98.5 degrees, pulse rate is 85, respirations 20, blood pressure is 147/96, and saturating 97% on room air. EXTREMITIES: Lower extremity physical exam, vascular, palpable pedal pulses noted bilaterally. Feet are equally warm. There is nonpitting edema noted bilaterally. DERMATOLOGICAL: There are small superficial ulcerations noted on bilateral legs, very small in dimensions and sparsely scattered on bilateral legs. No drainage is noted from the site. No malodor is noted. No deep structures are identified. There is darkening erythema on bilateral legs. Nails are mycotic in appearance. Interdigital spaces are clear. No other open wounds are noted. NEUROLOGICAL: Protective threshold is diminished. MUSCULOSKELETAL: The patient has 4/5 muscle strength noted anterior lateral and posterior muscle groups of bilateral lower extremities. LABORATORY AND DIAGNOSTIC DATA: White blood cell count is 8.9, hemoglobin and hematocrit is 16.5 and 49.1, and platelet count is 367. Potassium is 4.0, chloride is 100, sodium is 135, BUN is 16, creatinine is 0.9, and glucose is 141. Albumin is 3.4. INR is 1.1. ASSESSMENT: 1. Superficial non-pressure ulcers of bilateral legs. 2. Cellulitis, bilateral legs, resolving. 3. Venous stasis/insufficiency bilateral lower extremities. 4. Diabetes with neuropathy. 5. Chronic obstructive pulmonary disease. PLAN: 1. Compression dressings were ordered. 2. Continue antibiotics per ID. 3. No weightbearing restrictions. 4. Elevate legs when sitting. Thank you for the courtesy of this consultation, Dr. Holland. Shelly DejesusPKeli DR: GERALD JOB#: [id number] CC:
[2018-02-20] MEDS ORDERED: Warfarin Sodium 10mg ORAL SCH (17:00)
[2018-02-20 20:00] VITALS: BP 134/80
[2018-02-20] MEDS: Sennosides 8.6mg ORAL SCH (20:14)
--- NOTE | 2018-02-20 22:15 | Progress Note ---
DATE: 02/20/2018 SUBJECTIVE: This is a 78-year-old white male, currently doing better. Pain is controlled. Short of breath is improved. OBJECTIVE: VITAL SIGNS: Blood pressure is 130/70, pulse 60, and respirations 18. No fever. HEENT: NAD. CHEST: Bilaterally few crackles. CARDIOVASCULAR: Regular rhythm. No gallop. No murmur. ABDOMEN: Soft. EXTREMITIES: CCE. ASSESSMENT: 1. Acute chronic obstructive pulmonary disease. 2. Intractable pain. 3. Renal insufficiency. 4. Congestive heart failure. PLAN: We will currently continue current treatment. Discussed with the charge nurse. Discharge plan. The patient also received Nephrology consult as well as pain management. Diet is regular diet. Activity, bedrest. The patient is going to continue wound care. Continue p.o. antibiotics. Follow up at outpatient. Marlon Holland M.D. DR: KRISHNA JOB#: [id number] CC:
[2018-02-21] VITALS: BP 156/75
[2018-02-21 04:00] VITALS: BP 146/79
[2018-02-21] MEDS: MS Contin 15mg tab ORAL SCH ×3 (04:43→20:58)
[2018-02-21] MEDS: Vancomycin 1.5 GM/D5W 250ML IVPB SCH (04:44)
--- NOTE | 2018-02-21 07:47 | General Progress Note ---
Assessment/Plan Assessment/Plan (1) Lumbar DDD (2) Lumbar Spondylosis (3) H/o Lumbar surgery (4) B/L LE Pain (5) B/L LE Cellulitis (6) Narcotic dependency (7) COPD Patient to be continued on Morphine ER and [place] D/w Dr. Mccallum and he concurred. Subjective Date patient seen: Feb 21, 2018 Time patient seen: 07:00 - am Allergies: Coded Allergies: No Known Allergies (Unverified , 02/17/18) Subjective REVIEW OF SYSTEMS: Denies rash, fever, chills, sweating, dizziness, drowsiness, blurred vision, sore throat, or change in weight. No nausea, vomiting, diarrhea, or blood in the stool or urine. No bowel or bladder incontinence. No dysuria. He is complaining of low back pain. SUBJECTIVE: Patient reports that the pain is a moderate level using the Morphine as scheduled and 5 norco in the last 24hrs. He has no new complaints. Objective Last 24 Hour Vital Signs Date Time Temp Pulse Resp B/P (MAP) Pulse Ox O2 Delivery O2 Flow Rate FiO2 02/21/18 04:00 98.1 89 20 146/79 93 Room Air 98.1 02/21/18 00:00 98.6 75 20 156/75 96 Room Air 98.6 02/20/18 20:21 77 18 Room Air 21 02/20/18 20:00 99.1 74 20 134/80 94 Room Air 99.1 02/20/18 16:00 99.3 69 20 144/66 97 99.3 02/20/18 12:00 98.5 84 20 147/96 97 Room Air 98.5 02/20/18 08:17 83 18 Room Air 21 02/20/18 08:00 98.2 86 20 147/81 97 98.2 Intake and Output 02/20/18 02/21/18 19:00 07:00 Intake Total 1000 ml 500 ml Balance 1000 ml 500 ml Intake Oral 1000 ml 500 ml # Voids 8 5 Laboratory Tests 02/21/18 06:15: Prothrombin Time [Pending], Prothromb Time International Ratio [Pending] Height (Feet): 6 Height (Inches): 9.00 Weight (Pounds): 285 Objective GENERAL: Alert, awake, and oriented x3. LUNGS: Decreased breath sounds bilaterally. HEART: S1 and S2 regular. ABDOMEN: Benign. EXTREMITIES: Lower extremity range of motion is decreased due to the patient's current condition. Bandages were applied to bilateral lower extremities. Cyanosis and discoloration noted to bilateral feet. NEURO: No changes. Gaudencio Hoang Feb 21, 2018 07:47
[2018-02-21 08:00] VITALS: BP 135/71
[2018-02-21 08:14] LABS: INR 1.6 (0.9-1.1)
[2018-02-21] MEDS: Cefepime HCl 2 GM in D5W 110 ML IVPB SCH (08:19)
[2018-02-21] MEDS: Solu-MEDROL 40mg Inj IVP SCH (08:19)
[2018-02-21] MEDS: Aspirin Baby 81mg ORAL SCH (08:19)
[2018-02-21] MEDS: HYDROcodone/Acetamin 10/325 tab ORAL PRN ×2 (08:20→15:17)
[2018-02-21] MEDS: NovoLOG Insulin Flexpen SUBQ SCH ×2 (08:22→21:00)
[2018-02-21 12:00] VITALS: BP 163/104
--- NOTE | 2018-02-21 14:07 | Diagnostic Imaging Report ---
APPROVED REPORT CPT Code: 55466 Comments BILATERAL LEGS PAIN. BILATERAL: Common femoral artery waveform analysis is within normal limits at rest. Color flow duplex sonography reveals patency of the superficial femoral and popliteal arteries. There is no evidence of stenosis or occlusion within these segments.Tibial arteries and dorsal pedis not visualized bilaterally due to open wound and bandage.
[2018-02-21] MEDS ORDERED: ZOFRAN4 M3 ORAL (14:29)
[2018-02-21] MEDS ORDERED: LORAZEPAM0.5 MG ORAL (14:29)
[2018-02-21] MEDS ORDERED: COUMADIN10 MG ORAL (14:29)
[2018-02-21] MEDS ORDERED: DULCOLAX10 MG RC (14:29)
[2018-02-21] MEDS ORDERED: MORPHINE S10 MG/5 ML ORAL (14:29)
[2018-02-21] MEDS ORDERED: ASPIR 8181 MG ORAL (14:29)
[2018-02-21] MEDS ORDERED: DUONEB 0.5-3(2.53 ML HHN (14:29)
[2018-02-21] MEDS ORDERED: HYDROCHLOROTHIA25 MG ORAL (14:29)
[2018-02-21] MEDS ORDERED: SENNA8.6 M2 PO (14:29)
[2018-02-21] MEDS ORDERED: NORCO 10-325 T1 EACH ORAL (14:29)
[2018-02-21] MEDS ORDERED: LEVSIN0.125 MG ORAL (14:29)
[2018-02-21] MEDS ORDERED: MELATONIN5 M2 SL (14:29)
--- NOTE | 2018-02-21 14:31 | Consultation ---
History of Present Illness General Date patient seen: Feb 20, 2018 Present Illness HPI 78-year-old white male who came to the emergency room following acute COPD, chronic respiratory insufficiency, intractable pain, and bilateral leg ulcer. the pt stated that he has hx of depression and anxiety however he wants to manage it on his own. 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 He smiles and is very superficial. Allergies: Coded Allergies: No Known Allergies (Unverified , 02/17/18) Medication History Scheduled Aspirin* (Aspir 81*), 81 MG ORAL DAILY, (Reported) Hydrochlorothiazide* (Hydrochlorothiazide*), 25 MG ORAL DAILY, (Reported) Lorazepam* (Lorazepam*), 0.5 MG ORAL Q6HR, (Reported) Warfarin Sod* (Coumadin*), 10 MG ORAL DAILY, (Reported) Scheduled PRN Hydrocodone Bit/Acetaminophen 10-325* ([place] 10-325*), 1 TAB ORAL Q6H PRN for For Pain, (Reported) Hyoscyamine Sulfate (Levsin), 0.125 MG ORAL Q4HR PRN for Per rx protocol, ( Reported) Melatonin (Melatonin), 5 MG SL BEDTIME PRN for Insomnia, (Reported) Morphine 10mg/5ml Oral Soln* (Morphine 10mg/5ml Oral Soln*), 20 MG ORAL Q4HR PRN for For Pain, (Reported) Ondansetron* (Zofran*), 4 MG ORAL Q6H PRN for Nausea & Vomiting, (Reported) Miscellaneous Medications Bisacodyl (Dulcolax), 10 MG RC, (Reported) Ipratropium/Albuterol Sulfate (DuoNeb 0.5-3(2.5)mg/3ml), 3 ML HHN, (Reported) Sennosides (Senna), 8.6 MG PO, (Reported) Patient History Healthcare decision maker N Resuscitation status Full Code Advanced Directive on File Past Medical/Surgical History Past Medical/Surgical History: (1) PVD (peripheral vascular disease) (2) Wound, open, leg (3) COPD exacerbation (4) Bilateral cellulitis of lower leg Review of Systems Psychiatric: Reports: prior hx, anxiety Physical Exam General Appearance: no apparent distress, alert Neurologic: oriented x 3, responsive, depressed affect Last 24 Hour Vital Signs Date Time Temp Pulse Resp B/P (MAP) Pulse Ox O2 Delivery O2 Flow Rate FiO2 02/21/18 12:00 98.2 93 22 163/104 96 Room Air 98.2 02/21/18 08:00 98.1 94 20 135/71 97 Room Air 98.1 02/21/18 07:47 89 18 Room Air 21 02/21/18 04:00 98.1 89 20 146/79 93 Room Air 98.1 02/21/18 00:00 98.6 75 20 156/75 96 Room Air 98.6 02/20/18 20:21 77 18 Room Air 21 02/20/18 20:00 99.1 74 20 134/80 94 Room Air 99.1 02/20/18 16:00 99.3 69 20 144/66 97 99.3 Intake and Output 02/20/18 02/21/18 19:00 07:00 Intake Total 1000 ml 500 ml Balance 1000 ml 500 ml Intake Oral 1000 ml 500 ml # Voids 8 5 Laboratory Tests Test 02/21/18 06:15 Prothrombin Time 16.7 SEC (9.30-11.50) H Prothromb Time International Ratio 1.6 (0.9-1.1) H Height (Feet): 6 Height (Inches): 9.00 Weight (Pounds): 285 Medications Current Medications Medications (Trade) Dose Ordered Sig/Eulogio Route PRN Reason Start Time Stop Time Status Last Admin Dose Admin Acetaminophen/ Hydrocodone Bitart ([place] 10/325) 1 tab EVERY 6 HOURS PRN ORAL For Pain 02/18/18 00:15 02/25/18 00:14 02/21/18 08:20 Albuterol/ Ipratropium (Albuterol/ Ipratropium) 3 ml EVERY 6 HOURS PRN HHN Shortness of Breath 02/18/18 00:15 02/23/18 00:14 Aspirin (ASA) 81 mg DAILY ORAL 02/18/18 09:00 03/20/18 08:59 02/21/18 08:19 Bisacodyl (Dulcolax) 10 mg DAILYPRN PRN RECTAL Constipation 02/18/18 00:15 03/20/18 00:14 Ceftriaxone Sodium 2 gm/ Dextrose 55 ml @ 110 mls/hr Q24H IVPB 02/21/18 14:30 02/28/18 14:29 UNV Dextrose (Dextrose 50%) 25 ml STAT PRN IV Hypoglycemia 02/18/18 01:45 03/20/18 01:44 Dextrose (Dextrose 50%) 50 ml STAT PRN IV Hypoglycemia 02/18/18 01:45 03/20/18 01:44 Hydrochlorothiazide (Hydrodiuril) 25 mg DAILY ORAL 02/18/18 09:00 03/20/18 08:59 02/21/18 08:19 Hydrocortisone (Hydrocortisone) 1 applic Q6H PRN TOPIC Itching 02/18/18 10:45 03/20/18 10:44 02/19/18 23:12 Insulin Aspart (NovoLOG) Q12HR SUBQ 02/18/18 09:00 03/20/18 08:59 02/21/18 08:22 Lorazepam (Ativan) 0.5 mg Q6H PRN ORAL For Anxiety 02/18/18 01:45 02/25/18 01:44 Methylprednisolone Sodium Succinate (Solu-MEDROL) 40 mg EVERY 12 HOURS IVP 02/18/18 00:27 03/20/18 00:26 02/21/18 08:19 Morphine Sulfate (MS Contin) 60 mg Q8H ORAL 02/20/18 12:30 02/25/18 04:29 02/21/18 12:32 Naloxone HCl (Narcan) 0.4 mg Q2M PRN IV respiratory distress 02/20/18 08:15 03/22/18 08:14 Ondansetron HCl (Zofran ODT) 4 mg Q6H PRN ORAL Nausea & Vomiting 02/18/18 01:45 03/20/18 01:44 02/19/18 01:45 Pantoprazole (Protonix) 40 mg DAILY ORAL 02/18/18 09:00 03/20/18 08:59 02/21/18 08:22 Patient Own Medication (Patient's Own Med) 1 ea BID TOPIC 02/20/18 20:30 03/22/18 20:29 02/21/18 08:22 Sennosides (Senokot) 1 tab BEDTIME ORAL 02/18/18 21:00 03/20/18 20:59 02/20/18 20:14 Terbinafine HCl (LamISIL) 250 mg DAILY ORAL 02/22/18 09:00 05/24/18 08:59 UNV Vancomycin HCl (Vanco rx to dose) 1 ea DAILY PRN MISC Per rx protocol 02/18/18 15:00 03/20/18 14:59 Vancomycin HCl/ Dextrose 250 ml @ 125 mls/hr Q12H IVPB 02/18/18 17:00 02/23/18 16:59 02/21/18 04:44 Vitamin A/Vitamin D (A & D Oint) 1 applic EVERY OTHER DAY TOPIC 02/20/18 15:30 03/22/18 15:29 02/20/18 15:37 Warfarin Sodium (Coumadin per pharmacy) 1 ea DAILY PRN MISC . 02/19/18 17:15 03/21/18 17:14 Warfarin Sodium (Coumadin) 5 mg COUMADIN ORAL 02/21/18 17:00 02/21/18 18:01 Assessment/Plan Status: stable Assessment/Plan MDD Anxiety The pt is reluctant to take medications the pt was provided with margot/Verna Bates MD Feb 21, 2018 14:31
--- NOTE | 2018-02-21 15:11 | General Progress Note ---
Assessment/Plan Assessment/Plan MDD Anxiety The pt is reluctant to take medications the pt was provided with ro/st no meds the pt was educated about the compliance Subjective Date patient seen: Feb 21, 2018 Neurologic/Psychiatric: Reports: anxiety, depressed, emotional problems Allergies: Coded Allergies: No Known Allergies (Unverified , 02/17/18) Objective Last 24 Hour Vital Signs Date Time Temp Pulse Resp B/P (MAP) Pulse Ox O2 Delivery O2 Flow Rate FiO2 02/21/18 12:00 98.2 93 22 163/104 96 Room Air 98.2 02/21/18 08:00 98.1 94 20 135/71 97 Room Air 98.1 02/21/18 07:47 89 18 Room Air 21 02/21/18 04:00 98.1 89 20 146/79 93 Room Air 98.1 02/21/18 00:00 98.6 75 20 156/75 96 Room Air 98.6 02/20/18 20:21 77 18 Room Air 21 02/20/18 20:00 99.1 74 20 134/80 94 Room Air 99.1 02/20/18 16:00 99.3 69 20 144/66 97 99.3 Intake and Output 02/20/18 02/21/18 19:00 07:00 Intake Total 1000 ml 500 ml Balance 1000 ml 500 ml Intake Oral 1000 ml 500 ml # Voids 8 5 Laboratory Tests 02/21/18 06:15: Prothrombin Time 16.7H, Prothromb Time International Ratio 1.6H Height (Feet): 6 Height (Inches): 9.00 Weight (Pounds): 285 General Appearance: WD/WN, no apparent distress, alert Neurologic: oriented x 3, responsive, depressed affect Verna Sandhu MD Feb 21, 2018 15:11
--- NOTE | 2018-02-21 15:45 | Infectious Diseases Prog Note ---
Assessment/Plan Problems: (1) Bilateral cellulitis of lower leg Assessment & Plan: will switch vancomycin and cefepime empiric coverage to doxycycline and keflex for another 10 days , keep legs elevated all the time in bed, follow up with choir accompanist (2) Wound, open, leg Assessment & Plan: continue local wound care as per hospital protocol , keep legs elevated all the time in bed (3) COPD exacerbation Assessment & Plan: continue cefepime empiric coverage , continue bronchodilators (4) PVD (peripheral vascular disease) Assessment & Plan: arterial Doppler didn't show any disease in the visualized area , follow up with vascular (5) Onychomycosis of foot with other complication Assessment & Plan: will treat with lamisil for 12 weeks Subjective Constitutional: Reports: no symptoms HEENT: Reports: no symptoms Respiratory: Reports: no symptoms Breasts: Reports: no symptoms Cardiovascular: Reports: no symptoms Gastrointestinal/Abdominal: Reports: no symptoms Genitourinary: Reports: no symptoms Neurologic: Reports: no symptoms Psychiatric: Reports: no symptoms Skin: Reports: ulcer, other - dry and scaly on the legs Endocrine: Reports: no symptoms Hematologic: Reports: no symptoms Musculoskeletal: Reports: no symptoms Allergies: Coded Allergies: No Known Allergies (Unverified , 02/17/18) Objective Vital Signs Last 24 Hour Vital Signs Date Time Temp Pulse Resp B/P (MAP) Pulse Ox O2 Delivery O2 Flow Rate FiO2 02/21/18 15:17 98.2 02/21/18 12:00 98.2 93 22 163/104 96 Room Air 98.2 02/21/18 08:00 98.1 94 20 135/71 97 Room Air 98.1 02/21/18 07:47 89 18 Room Air 21 02/21/18 04:00 98.1 89 20 146/79 93 Room Air 98.1 02/21/18 00:00 98.6 75 20 156/75 96 Room Air 98.6 02/20/18 20:21 77 18 Room Air 21 02/20/18 20:00 99.1 74 20 134/80 94 Room Air 99.1 02/20/18 16:00 99.3 69 20 144/66 97 99.3 Height (Feet): 6 Height (Inches): 9.00 Weight (Pounds): 285 General Appearance: WD/WN, no acute distress HEENT: normocephalic, atraumatic, anicteric, mucous membranes moist, PERRL, pharynx normal, supple, no JVD Respiratory/Chest: chest wall non-tender, lungs clear, normal breath sounds, no respiratory distress, no accessory muscle use Cardiovascular: normal peripheral pulses, normal rate, regular rhythm, no gallop/murmur, no JVD Abdomen: normal bowel sounds, soft, non tender, no organomegaly, non distended , no mass Genitourinary: normal external genitalia Extremities: no cyanosis, no clubbing, other - stasis dermatitis with dry skin Skin: no rash, no lesions, other - lymphedema with stasis at the legs Neurologic/Psychiatric: alert, oriented x 3, responsive Lymphatic: no neck adenopathy, no groin adenopathy Laboratory Tests Test 02/21/18 06:15 Prothrombin Time 16.7 SEC (9.30-11.50) H Prothromb Time International Ratio 1.6 (0.9-1.1) H Current Medications Medications (Trade) Dose Ordered Sig/Eulogio Route PRN Reason Start Time Stop Time Status Last Admin Dose Admin Acetaminophen/ Hydrocodone Bitart ([place] 10/325) 1 tab EVERY 6 HOURS PRN ORAL For Pain 02/18/18 00:15 02/25/18 00:14 02/21/18 15:17 Albuterol/ Ipratropium (Albuterol/ Ipratropium) 3 ml EVERY 6 HOURS PRN HHN Shortness of Breath 02/18/18 00:15 02/23/18 00:14 Aspirin (ASA) 81 mg DAILY ORAL 02/18/18 09:00 03/20/18 08:59 02/21/18 08:19 Bisacodyl (Dulcolax) 10 mg DAILYPRN PRN RECTAL Constipation 02/18/18 00:15 03/20/18 00:14 Cephalexin (Keflex) 500 mg FOUR TIMES A DAY ORAL 02/21/18 18:00 02/28/18 17:59 Dextrose (Dextrose 50%) 25 ml STAT PRN IV Hypoglycemia 02/18/18 01:45 03/20/18 01:44 Dextrose (Dextrose 50%) 50 ml STAT PRN IV Hypoglycemia 02/18/18 01:45 03/20/18 01:44 Doxycycline Monohydrate (Vibramycin) 100 mg EVERY 12 HOURS ORAL 02/21/18 21:00 02/28/18 20:59 Hydrochlorothiazide (Hydrodiuril) 25 mg DAILY ORAL 02/18/18 09:00 03/20/18 08:59 02/21/18 08:19 Hydrocortisone (Hydrocortisone) 1 applic Q6H PRN TOPIC Itching 02/18/18 10:45 03/20/18 10:44 02/19/18 23:12 Insulin Aspart (NovoLOG) Q12HR SUBQ 02/18/18 09:00 03/20/18 08:59 02/21/18 08:22 Lorazepam (Ativan) 0.5 mg Q6H PRN ORAL For Anxiety 02/18/18 01:45 02/25/18 01:44 Morphine Sulfate (MS Contin) 60 mg Q8H ORAL 02/20/18 12:30 02/25/18 04:29 02/21/18 12:32 Naloxone HCl (Narcan) 0.4 mg Q2M PRN IV respiratory distress 02/20/18 08:15 03/22/18 08:14 Ondansetron HCl (Zofran ODT) 4 mg Q6H PRN ORAL Nausea & Vomiting 02/18/18 01:45 03/20/18 01:44 02/19/18 01:45 Pantoprazole (Protonix) 40 mg DAILY ORAL 02/18/18 09:00 03/20/18 08:59 02/21/18 08:22 Patient Own Medication (Patient's Own Med) 1 ea BID TOPIC 02/20/18 20:30 03/22/18 20:29 02/21/18 08:22 Sennosides (Senokot) 1 tab BEDTIME ORAL 02/18/18 21:00 03/20/18 20:59 02/20/18 20:14 Terbinafine HCl (LamISIL) 250 mg DAILY ORAL 02/22/18 09:00 05/24/18 08:59 Vitamin A/Vitamin D (A & D Oint) 1 applic EVERY OTHER DAY TOPIC 02/20/18 15:30 03/22/18 15:29 02/20/18 15:37 Warfarin Sodium (Coumadin per pharmacy) 1 ea DAILY PRN MISC . 02/19/18 17:15 03/21/18 17:14 Warfarin Sodium (Coumadin) 5 mg COUMADIN ORAL 02/21/18 17:00 02/21/18 18:01 Fabiola Vora M.D. Feb 21, 2018 15:45
[2018-02-21 16:00] VITALS: BP 137/84
[2018-02-21] MEDS ORDERED: NS 275ml ONE (16:09)
[2018-02-21] MEDS ORDERED: Tubing IV Secondary IV ONE (16:09)
[2018-02-21] MEDS ORDERED: CEPHALEXIN500 MG ORAL (16:19)
[2018-02-21] MEDS ORDERED: DOXYCYCLINE HY100 M2 PO (16:19)
[2018-02-21] MEDS ORDERED: TERBINAFINE15 GM TP (16:20)
[2018-02-21] MEDS ORDERED: Warfarin Sodium 5mg ORAL SCH (17:00)
[2018-02-21] MEDS: Cephalexin 500mg cap ORAL SCH ×2 (17:58→21:00)
[2018-02-21 18:09] LABS: BASOPHILS % (AUTO) 0.7 % (0.0-2.0); HEMATOCRIT 47.8 % (42.0-52.0); HEMOGLOBIN 16.1 G/DL (14.2-18.0); LYMPHOCYTES % (AUTO) 10.8 % (20.0-45.0); MEAN CORPUSCULAR VOLUME 86 FL (80-99); MONOCYTES % (AUTO) 7.3 % (1.0-10.0); NEUTROPHILS % (AUTO) 81.2 % (45.0-75.0); PLATELET COUNT 385 K/UL (150-450); RED BLOOD COUNT 5.53 M/UL (4.70-6.10); RED CELL DISTRIBUTION WIDTH 14.7 % (11.6-14.8); WHITE BLOOD COUNT 15.8 K/UL (4.8-10.8)
[2018-02-21 18:18] LABS: ALANINE AMINOTRANSFERASE 23 U/L (12-78); ALBUMIN 3.6 G/DL (3.4-5.0); ALBUMIN/GLOBULIN RATIO 0.8 (1.0-2.7); ALKALINE PHOSPHATASE 121 U/L (46-116); ANION GAP 5 mmol/L (5-15); ASPARTATE AMINO TRANSFERASE 13 U/L (15-37); BILIRUBIN,TOTAL 0.3 MG/DL (0.2-1.0); BLOOD UREA NITROGEN 25 mg/dL (7-18); CALCIUM 9.1 MG/DL (8.5-10.1); CARBON DIOXIDE 30 MMOL/L (21-32); CHLORIDE 97 MMOL/L (98-107); CREATININE 0.9 MG/DL (0.55-1.30); POTASSIUM 4.1 MMOL/L (3.5-5.1); SODIUM 132 MMOL/L (136-145)
[2018-02-21 19:53] VITALS: BP 131/79
[2018-02-21] MEDS: Sennosides 8.6mg ORAL SCH (20:59)
[2018-02-21] MEDS ORDERED: cefTRIAXone 2 GM in D5W 110 ML IVPB SCH (21:00)
--- NOTE | 2018-02-22 01:15 | Discharge Summary ---
DATE OF ADMISSION: 02/17/2018 DATE OF DISCHARGE: 02/21/2018 PROGRESS NOTE AND DISCHARGE SUMMARY HISTORY: This is an elderly male, who came to the emergency room for COPD and intractable pain. The patient received bronchodilator treatment and pain management. He is clinically improving. [facility] PHYSICAL EXAMINATION: Improving. He also has non-healing ulcer, which is improving. DIET: He is on regular diet. ACTIVITY: Bed to chair. DISCHARGE MEDICATIONS: Continue home medications. FOLLOWUP: Follow up as an outpatient. Marlon Holland M.D. DR: MARIO ALBERTO JOB#: [id number] CC:
--- NOTE | 2018-02-23 07:40 | Discharge Summary ---
Discharge Summary Hospital Course Date of Admission Feb 17, 2018 at 19:27 Date of Discharge Feb 21, 2018 at 21:20 Admitting Diagnosis COPD exacerbation HPI Isaac Page is a 78 year old male who was admitted on Feb 17, 2018 at 19:27 for Chronic Obstructive Pulmonary Disease/ Consultations dr Vora-ID dr Sandhu - psych dr Mccallum-pain specialist Procedures DISCHARGE DIAGNOSIS COPD exacerbation Bilateral lower extremity cellulitis Peripheral vascular disease Onychomycosis Lumbar DDD Lumbar spondylosis History of lumbar surgery Major depressive disorder Hospital Course see dr Skyler chong summary Discharge Medications Continued Medications: Aspirin* (Aspir 81*) 81 Mg Tablet.dr 81 MG ORAL DAILY, TAB (This prescription has been renewed) Bisacodyl (Dulcolax) 10 Mg Supp.rect 10 MG RC, SUPP (This prescription has been renewed) Cephalexin* (Keflex*) 500 Mg Capsule 500 MG ORAL EVERY 6 HOURS for 10 Days, CAP (This prescription has been renewed) Doxycycline Hyclate (Doxycycline Hyclate) 100 Mg Capsule 100 MG PO Q12HR for 10 Days, CAP (This prescription has been renewed) Hydrochlorothiazide* (Hydrochlorothiazide*) 25 Mg Tablet 25 MG ORAL DAILY, TAB (This prescription has been renewed) Hydrocodone Bit/Acetaminophen 10-325* (Jefferson 10-325*) 1 Each Tablet 1 TAB ORAL Q6H PRN for For Pain, #10 TAB 0 Refills (This prescription has been renewed) PRN PAIN Hyoscyamine Sulfate (Levsin) 0.125 Mg Tablet 0.125 MG ORAL Q4HR PRN for Per rx protocol, TAB (This prescription has been renewed) Ipratropium/Albuterol Sulfate (DuoNeb 0.5-3(2.5)mg/3ml) 3 Ml Ampul.neb 3 ML HHN, EA (This prescription has been renewed) Lorazepam* (Lorazepam*) 0.5 Mg Tablet 0.5 MG ORAL Q6HR, TAB (This prescription has been renewed) Melatonin (Melatonin) 5 Mg Tab.subl 5 MG SL BEDTIME PRN for Insomnia, #2 TAB (This prescription has been renewed) Morphine 10mg/5ml Oral Soln* (Morphine 10mg/5ml Oral Soln*) 10 Mg/5 Ml Solution 20 MG ORAL Q4HR PRN for For Pain, ML 0 Refills (This prescription has been renewed) Ondansetron* (Zofran*) 4 Mg Tablet 4 MG ORAL Q6H PRN for Nausea & Vomiting, TAB (This prescription has been renewed ) Sennosides (Senna) 8.6 Mg Tablet 8.6 MG PO, TAB (This prescription has been renewed) Terbinafine Hcl (Terbinafine) 15 Gm Cream..g. 15 GM TP Q12HR, GM (This prescription has been renewed) Warfarin Sod* (Coumadin*) 10 Mg Tablet 10 MG ORAL DAILY, TAB (This prescription has been renewed) Discharge Condition Upon Discharge: stable Discharge Disposition Patient was discharged to SNF/Subacute Facility(03) Discharge Instructions Discharge Instructions Special Instructions I have been assigned to complete a D/C Summary on this account. I was not involved in the patient management Autumn Guy NP Feb 23, 2018 07:40
== END 2018-02-21 21:20 | DRG 191 ==
LOC: 4E 19:27
DX: J44.1 Chronic obstructive pulmonary disease with (acute) exacerbation (principal); L03.116 Cellulitis of left lower limb; L03.115 Cellulitis of right lower limb; L97.929 Non-pressure chronic ulcer of unspecified part of left lower leg with unspecified severity; L97.919 Non-pressure chronic ulcer of unspecified part of right lower leg with unspecified severity; I73.9 Peripheral vascular disease, unspecified; G89.29 Other chronic pain; B35.1 Tinea unguium; M51.36 Other intervertebral disc degeneration, lumbar region; M47.896 Other spondylosis, lumbar region; F32.9 Major depressive disorder, single episode, unspecified; Z98.1 Arthrodesis status; F17.200 Nicotine dependence, unspecified, uncomplicated; E11.40 Type 2 diabetes mellitus with diabetic neuropathy, unspecified
CPT/HCPCS: 36415; 71045; 80053; 80202; 82962; 85025; 85610; 85651; 87081; 93925; 94664; 94760; J1815